=== PATIENT | male | born 1990 | race Caucasian/White ===

== ENCOUNTER 2017-12-17 19:04 | Inpatient (IN) | payer OTHER ==
[~2017-12-17] VITALS: Ht 185.4 cm; Wt 63.5 kg
[2017-12-17] MEDS ORDERED: MIRALAX 17 GM POWD.PACK PO PRN (23:00)
[2017-12-17] MEDS ORDERED: LOPERAMIDE HCL 2 MG CAPSULE PO PRN ×2 (23:00)
[2017-12-17] MEDS ORDERED: HYDROXYZINE PAMOATE 25 MG CAPSULE PO PRN (23:00)
[2017-12-17] MEDS ORDERED: ONDANSETRON ODT 4 MG TAB.RAPDIS SL PRN (23:00)
[2017-12-17] MEDS ORDERED: LORAZEPAM 1 MG TABLET PO PRN (23:00)
[2017-12-17] MEDS ORDERED: DICYCLOMINE HCL 20 MG TABLET PO PRN (23:00)
[2017-12-17] MEDS ORDERED: ONDANSETRON 4 MG/2 ML VIAL IM PRN (23:00)
[2017-12-17] MEDS ORDERED: MAG HYDROX/AL HYDROX/SIMETH 30 ML LIQUID UDC PO PRN (23:00)
[2017-12-17] MEDS ORDERED: MAGNESIUM HYDROXIDE 30 ML LIQUID UDC PO PRN (23:00)
[2017-12-17 23:40] VITALS: BP 122/73
[2017-12-18 00:20] VITALS: BP 117/65
[2017-12-18 00:47] LABS: ALANINE AMINOTRANSFERASE 38 U/L (16-63); ALKALINE PHOSPHATASE 77 U/L (50-136); ASPARTATE AMINOTRANSFERASE 21 U/L (15-37); BILIRUBIN,TOTAL 0.7 mg/dL (0.2-1.0); CARBON DIOXIDE 32 mmol/L (21-32); CHLORIDE 101 mmol/L (98-107); CREATININE 1.1 mg/dL (0.6-1.3); GLUCOSE 79 mg/dL (74-106); MAGNESIUM 2.1 mg/dL (1.8-2.4); POTASSIUM 3.3 mmol/L (3.5-5.1); TOTAL PROTEIN, SERUM 7.3 g/dL (6.4-8.2); UREA NITROGEN, BLOOD 11 mg/dL (7-18)
[2017-12-18] MEDS: BUPRENORPHINE HCL 2 MG TAB.SUBL SL PRN ×2 (00:56→08:45)
[2017-12-18 01:00] LABS: BASOPHILS # (AUTO) 0.1 K/uL (0.0-8.0); BASOPHILS % (AUTO) 0.9 % (0.0-2.0); EOSINOPHILS # (AUTO) 0.4 K/uL (0.0-0.7); EOSINOPHILS % (AUTO) 7.1 % (0.0-7.0); HEMATOCRIT 47.2 % (36.7-47.1); LYMPHOCYTES # (AUTO) 2.4 K/uL (20.0-40.0); LYMPHOCYTES % (AUTO) 38.2 % (20.5-51.5); MEAN CORPUSCULAR HEMOGLOBIN 30.8 uug (23.8-33.4); MEAN CORPUSCULAR HGB CONC 34 g/dL (32.5-36.3); MONOCYTES # (AUTO) 0.5 K/uL (2.0-10.0); MONOCYTES % (AUTO) 7.4 % (0.0-11.0); NEUTROPHILS # (AUTO) 2.9 K/uL (1.8-8.9); NEUTROPHILS % (AUTO) 46.4 % (38.5-71.5); PLATELET COUNT (AUTO) 234 K/uL (152-348); RED BLOOD CELL COUNT(AUTO) 5.19 MIL/uL (4.06-5.63); WHITE BLOOD COUNT (AUTO) 6.3 K/uL (3.6-10.2)
[2017-12-18 01:01] LABS: ETHANOL < 3 MG/DL (0-0)
[2017-12-18 02:41] LABS: *AMPHETAMINE, URINE NEGATIVE (NEGATIVE); *BARBITURATE, URINE NEGATIVE (NEGATIVE); *CANNABINOID, URINE POSITIVE (NEGATIVE); *COCCAINE, URINE POSITIVE (NEGATIVE); *OPIATE, URINE POSITIVE (NEGATIVE); *PHENCYCLIDINE SCREEN,URINE NEGATIVE (NEGATIVE)
[2017-12-18 04:54] VITALS: BP 97/60
[2017-12-18 08:25] VITALS: BP 96/63
[2017-12-18] MEDS: MULTIVITAMINS,THERAPEUTIC TABLET PO SCH (08:44)
[2017-12-18] MEDS ORDERED: TUBERCULIN,PURIF.PROT.DERIV. 5 TU/0.1 ML TEST ID ONE (09:00)
[2017-12-18] MEDS ORDERED: POTASSIUM CHLORIDE 20 MEQ TAB.PRT.SR PO ONE (09:00)
[2017-12-18] MEDS ORDERED: NICOTINE 14 MG/24HR PATCH TD PRN (10:45)
[2017-12-18] MEDS ORDERED: LORAZEPAM 2 MG/1 ML VIAL IM PRN (10:45)
[2017-12-18] MEDS ORDERED: NICOTINE POLACRILEX 4 MG GUM-PK OF TEN BC PRN (10:45)
[2017-12-18] MEDS ORDERED: LORAZEPAM 1 MG TABLET PO PRN (10:45)
[2017-12-18] MEDS: METHOCARBAMOL 750 MG TABLET PO PRN ×2 (12:10→20:28)
[2017-12-18] MEDS: CLONIDINE HCL 0.1 MG TABLET PO PRN (12:11)
[2017-12-18 13:12] VITALS: BP 122/64
[2017-12-18] MEDS: BUPRENORPHINE HCL 2 MG TAB.SUBL SL SCH ×2 (14:00→20:29)
[2017-12-18 17:20] VITALS: BP 101/58
[2017-12-18 20:00] VITALS: BP 106/64
[2017-12-18] MEDS: GABAPENTIN 300 MG CAPSULE PO SCH (20:28)
[2017-12-19] MEDS: diphenhydrAMINE 50 MG CAPSULE PO PRN ×2 (01:18→22:38)
[2017-12-19 08:01] VITALS: BP 108/60
[2017-12-19] MEDS: GABAPENTIN 300 MG CAPSULE PO SCH ×3 (08:49→21:31)
[2017-12-19] MEDS: MULTIVITAMINS,THERAPEUTIC TABLET PO SCH (08:49)
[2017-12-19] MEDS: LORAZEPAM 1 MG TABLET PO PRN ×3 (08:49→21:32)
[2017-12-19] MEDS: IBUPROFEN 600 MG TABLET PO PRN ×3 (08:49→21:32)
[2017-12-19] MEDS ORDERED: BUPRENORPHINE HCL 2 MG TAB.SUBL SL SCH (09:00)
[2017-12-19 12:00] VITALS: BP 140/79
[2017-12-19 12:06] LABS: HEPATITIS B SURFACE AG Negative (Negative)
[2017-12-19] MEDS: CLONIDINE HCL 0.1 MG TABLET PO PRN (13:04)
[2017-12-19] MEDS: BUPRENORPHINE HCL 2 MG TAB.SUBL SL SCH ×2 (15:12→21:32)
[2017-12-19 16:23] VITALS: BP 137/83
[2017-12-19] MEDS: ACETAMINOPHEN 325 MG TABLET PO PRN (17:06)
[2017-12-19 20:00] VITALS: BP 109/70
[2017-12-19] MEDS: BACLOFEN 10 MG TABLET PO SCH (21:31)
[2017-12-19] MEDS: CLONIDINE HCL 0.1 MG TABLET PO SCH (21:32)
[2017-12-20] VITALS: BP 96/61
[2017-12-20 04:00] VITALS: BP 90/46
[2017-12-20 08:00] VITALS: BP 98/54
[2017-12-20] MEDS: GABAPENTIN 300 MG CAPSULE PO SCH ×3 (09:19→20:31)
[2017-12-20] MEDS: BACLOFEN 10 MG TABLET PO SCH ×3 (09:19→20:31)
[2017-12-20] MEDS: MULTIVITAMINS,THERAPEUTIC TABLET PO SCH (09:19)
[2017-12-20] MEDS: METHOCARBAMOL 750 MG TABLET PO PRN (09:19)
[2017-12-20] MEDS: CLONIDINE HCL 0.1 MG TABLET PO SCH ×2 (09:19→20:31)
[2017-12-20] MEDS: BUPRENORPHINE HCL 2 MG TAB.SUBL SL SCH ×3 (09:20→20:30)
[2017-12-20] MEDS: ACETAMINOPHEN 325 MG TABLET PO PRN (10:08)
[2017-12-20] MEDS: IBUPROFEN 600 MG TABLET PO PRN ×2 (10:08→22:31)
[2017-12-20] MEDS ORDERED: BENZOCAINE ORAL CARE 12 ML BOTTLE MM PRN (10:45)
[2017-12-20] MEDS: LORAZEPAM 1 MG TABLET PO PRN ×2 (11:00→14:26)
[2017-12-20 12:00] VITALS: BP 118/64
[2017-12-20] MEDS: KETOROLAC TROMETHAMINE 30 MG INJ IM PRN (14:27)
[2017-12-20 16:00] VITALS: BP 121/69
[2017-12-20 20:00] VITALS: BP 118/78
[2017-12-21 08:00] VITALS: BP 80/40
[2017-12-21] MEDS: LORAZEPAM 1 MG TABLET PO PRN ×3 (08:55→15:08)
[2017-12-21] MEDS: MULTIVITAMINS,THERAPEUTIC TABLET PO SCH (08:55)
[2017-12-21] MEDS: GABAPENTIN 300 MG CAPSULE PO SCH ×3 (08:55→20:12)
[2017-12-21] MEDS: BACLOFEN 10 MG TABLET PO SCH (08:55)
[2017-12-21] MEDS: BUPRENORPHINE HCL 2 MG TAB.SUBL SL SCH ×2 (08:56→20:13)
[2017-12-21] MEDS: KETOROLAC TROMETHAMINE 30 MG INJ IM PRN ×2 (08:57→15:05)
[2017-12-21] MEDS: CLONIDINE HCL 0.1 MG TABLET PO SCH ×3 (09:00→20:13)
[2017-12-21] MEDS ORDERED: AMOXICILLIN-CLAVUL 875-125MG TABLET PO ONE (10:45)
[2017-12-21 12:00] VITALS: BP 148/88
[2017-12-21] MEDS: CLONIDINE HCL 0.1 MG TABLET PO PRN (12:34)
[2017-12-21 13:00] VITALS: BP 113/57
[2017-12-21] MEDS: BACLOFEN 20 MG TABLET PO SCH ×2 (15:03→20:13)
[2017-12-21 16:00] VITALS: BP 106/60
[2017-12-21] MEDS ORDERED: DIPH50CA37 PO (19:31)
[2017-12-21] MEDS ORDERED: GABA-534 PO ×2 (19:31)
[2017-12-21] MEDS ORDERED: DICY20TA28 PO (19:31)
[2017-12-21] MEDS ORDERED: CLON0.1T14 PO (19:31)
[2017-12-21] MEDS ORDERED: LIDO30AD10 TD (19:31)
[2017-12-21] MEDS ORDERED: HYDR-3895 PO (19:31)
[2017-12-21] MEDS ORDERED: Amoxicillin-Clavul 875MG Tab PO (19:31)
[2017-12-21] MEDS ORDERED: IBUP-1955 PO (19:31)
[2017-12-21] MEDS ORDERED: BACL20TA PO (19:31)
[2017-12-21] MEDS: IBUPROFEN 600 MG TABLET PO PRN (19:52)
[2017-12-21 20:00] VITALS: BP 117/74
[2017-12-21] MEDS: LACTOBACILLUS RHAMNOSUS GG 1 EACH CAPSULE PO SCH (20:13)
[2017-12-21] MEDS: AMOXICILLIN-CLAVUL 875-125MG TABLET PO SCH (20:23)
[2017-12-22 08:00] VITALS: BP 116/67
[2017-12-22] MEDS: LORAZEPAM 1 MG TABLET PO PRN (08:49)
[2017-12-22] MEDS: GABAPENTIN 300 MG CAPSULE PO SCH ×3 (08:49→21:12)
[2017-12-22] MEDS: LACTOBACILLUS RHAMNOSUS GG 1 EACH CAPSULE PO SCH ×2 (08:49→21:13)
[2017-12-22] MEDS: AMOXICILLIN-CLAVUL 875-125MG TABLET PO SCH ×2 (08:49→21:12)
[2017-12-22] MEDS: BACLOFEN 20 MG TABLET PO SCH ×3 (08:49→21:12)
[2017-12-22] MEDS: MULTIVITAMINS,THERAPEUTIC TABLET PO SCH (08:49)
[2017-12-22] MEDS: CLONIDINE HCL 0.1 MG TABLET PO SCH ×2 (08:50→21:13)
[2017-12-22] MEDS: KETOROLAC TROMETHAMINE 30 MG INJ IM PRN ×2 (08:51→17:33)
[2017-12-22] MEDS: LIDOCAINE 5% PATCH TD SCH (08:55)
[2017-12-22] MEDS ORDERED: BUPRENORPHINE HCL 2 MG TAB.SUBL SL SCH (09:00)
[2017-12-22 12:00] VITALS: BP 125/82
[2017-12-22 16:00] VITALS: BP 116/71
[2017-12-22 20:11] VITALS: BP 123/71
[2017-12-22] MEDS: diphenhydrAMINE 50 MG CAPSULE PO PRN (23:18)
[2017-12-23 00:28] VITALS: BP 126/83
[2017-12-23] MEDS: KETOROLAC TROMETHAMINE 30 MG INJ IM PRN (03:22)
[2017-12-23 04:10] VITALS: BP 131/87
[2017-12-23 08:24] VITALS: BP 122/74
[2017-12-23] MEDS: LACTOBACILLUS RHAMNOSUS GG 1 EACH CAPSULE PO SCH (08:41)
[2017-12-23] MEDS: AMOXICILLIN-CLAVUL 875-125MG TABLET PO SCH (08:41)
[2017-12-23] MEDS: BACLOFEN 20 MG TABLET PO SCH (08:41)
[2017-12-23] MEDS: GABAPENTIN 300 MG CAPSULE PO SCH (08:41)
[2017-12-23 08:42] VITALS: BP 122/74
[2017-12-23] MEDS: LIDOCAINE 5% PATCH TD SCH (08:42)
[2017-12-23] MEDS: CLONIDINE HCL 0.1 MG TABLET PO SCH (08:42)
[2017-12-23] MEDS: MULTIVITAMINS,THERAPEUTIC TABLET PO SCH (08:42)
[2017-12-23] MEDS: ACETAMINOPHEN 325 MG TABLET PO PRN (08:46)
== END 2017-12-23 09:30 | disposition other institution (70) | DRG 895 ==
LOC: SRC 22:57
PROVIDERS: ADMIT Internal Medicine; ATTEND Internal Medicine
PROC: HZ2ZZZZ Detoxification Services for Substance Abuse Treatment (ICD-10-PCS; principal; 2017-12-17)
PROC: HZ41ZZZ Group Counseling for Substance Abuse Treatment, Behavioral (ICD-10-PCS; 2017-12-18)
PROC: HZ51ZZZ Individual Psychotherapy for Substance Abuse Treatment, Behavioral (ICD-10-PCS; 2017-12-20)
DX: F11.23 Opioid dependence with withdrawal (principal); F14.20 Cocaine dependence, uncomplicated; F17.210 Nicotine dependence, cigarettes, uncomplicated; J45.20 Mild intermittent asthma, uncomplicated; F13.230 Sedative, hypnotic or anxiolytic dependence with withdrawal, uncomplicated; Z81.1 Family history of alcohol abuse and dependence; Z83.49 Family history of other endocrine, nutritional and metabolic diseases; F41.0 Panic disorder [episodic paroxysmal anxiety]; F12.20 Cannabis dependence, uncomplicated; E87.6 Hypokalemia; K08.89 Other specified disorders of teeth and supporting structures
CPT/HCPCS: 36415; 70030-TC; 80307; 80346; 80349; 80353; 80361; 83735; 85025; 86580; 86592; 86705; 86803; 87340; 87806; A9150; G0480; J1885; Q0163